=== PATIENT | male | born 1965 | race Caucasian/White ===

== ENCOUNTER 2024-02-17 14:35 | Outpatient (OUT) | payer BC, SELFPAY | END 2024-02-17 14:36 | disposition home or self-care (01) | LOC: PST 14:36 | PROVIDERS: PCP Internal Medicine; Visit Provider Surgery | DX: Z01.818 Encounter for other preprocedural examination (principal); D50.9 Iron deficiency anemia, unspecified ==

== ENCOUNTER 2024-02-26 06:32 | Day surgery (SDC) | payer BC, SELFPAY ==
--- NOTE | 2024-02-26 | OP_ITS ---
OPERATION DATE: 02/26/2024 PREOPERATIVE DIAGNOSIS: Iron deficiency anemia. POSTOPERATIVE DIAGNOSIS: Normal EGD and 4 mm sessile polyp in the ascending colon. PROCEDURE: EGD and colonoscopy to cecum with cold snare polypectomy x1. SURGEON: Mark Marie M.D. ANESTHESIA: Monitored anesthesia care. ESTIMATED BLOOD LOSS: Less than 1 mL. INDICATIONS AND CONSENT: Patient is a 59-year-old male presents for evaluation of iron deficiency anemia. Indications, risks, benefits, alternatives of proceeding with EGD and colonoscopy were explained extensively to the patient, including the risks of bleeding, aspiration, esophageal/gastric/duodenal or colonic perforation or anesthetic complications. All of his questions were answered. Informed consent was obtained. PROCEDURE: Patient brought to the operating room, placed in the left lateral decubitus position. Monitored anesthesia care was provided. Bite block was placed in the patient?s mouth. Scope was inserted into the oropharynx. Under direct visualization, it was advanced into the esophagus, past the cricopharyngeus, down to the stomach. The stomach was insufflated with air. The pylorus was traversed down to the descending portion of the duodenum. There was no evidence of duodenitis or ulceration. There was no scarring within the pyloric channel. Scope was pulled back into the stomach and retroflexed. There was no significant hiatal hernia. The GE junction was noted at approximately 42 cm. There was no distal esophagitis or Cruz?s changes. Remainder of the esophagus was unremarkable. The scope was then withdrawn. Patient was then positioned for colonoscopy. Rectal exam was performed, which showed no masses or blood. The scope was then inserted into the anal canal. Under direct visualization, it was advanced. It was advanced to the cecum where cecal markings were clearly identified. There was noted to be a good prep. Upon withdrawal of the scope, mucosal surfaces were carefully examined. Within the ascending colon, there was noted to be a 4 mm flat, sessile polyp that was removed with cold snare with good hemostasis. There were no other mass lesions or polyps. No inflammatory changes or ulcerations. No significant diverticula. The scope was retroflexed in the anal canal. There was no significant hemorrhoidal disease. The scope was then withdrawn. The patient tolerated procedure well, was sent to recovery room in good condition. Follow up colonoscopy for surveillance likely in five years, but will depend on pathology report. CC: Mikel Darby D.O. GONZALES
--- OUTSIDE RECORDS SUMMARY | 2024-02-26 06:37 | XMS_ITS | CCD ---
Author Organization [facility] Care Team Providers Care Territory Representative Name Role Phone ANDREW MICHELLE JR Primary Care Physician [phone] VIVIANA, DR MORALES Primary Care Unavailable NILL, DR CHANG Attending Unavailable NILL, DR CHANG Consulting Unavailable NILL, DR CHANG Admitting Unavailable MARCELO GIPSON Consulting Unavailable NILL, DR CHANG Attending Unavailable NILL, DR CHANG Admitting Unavailable MURCEKDARION Attending Unavailable PETR VALDERRAMA Referring Unavailable ANDREW MICHELLE JR Primary Care Unavailable ANDREW MICHELLE Referring Unavailable CHRISTY, Charlene Tim Attending Unavailable Allergies Allergy Classification Reported Allergen(s) Allergy Type Date of Onset Reaction(s) Facility (4 sources) Codeine; Translations: [codeine] Drug Allergy Unknown General Surgery [place] (1 source) Codeine Drug Allergy [facility] Repository Medications Current Medications Medication Drug Class(es) Dates Sig (Normalized) Sig (Original) 0.5 ML tirzepatide 30 MG/ML Auto-Injector [Mounjaro] (1 source) Start: 01-31-2024 inject 15 mg by subcutaneous injection every week Mounjaro 15 mg/0.5 mL subcutaneous solution 15 mg, SubCutaneous, qWeek, Refills(s) 0 Start Date: 01/31/24 Status: Ordered atorvastatin 40 mg oral tablet (3 sources) HMG-CoA Reductase Inhibitor Start: 04-12-2022 take 1 tablet by mouth at bedtime Lipitor 40 mg Tab 40 mg = 1 tab(s), Oral, Bedtime, Refills(s) 0 Start Date: 04/12/22 Status: Ordered azilsartan medoxomil 80 mg oral tablet (2 sources) Angiotensin 2 Receptor Aaliyah Start: 04-12-2022 take 1 tablet by mouth once daily Edarbi 80 mg oral tablet 80 mg = 1 tab(s), Oral, Daily, Refills(s) 0 Start Date: 04/12/22 Status: Ordered candesartan cilexetil 32 mg oral tablet (1 source) Angiotensin 2 Receptor Aaliyah Start: 01-31-2024 take 1 tablet by mouth once daily Atacand 32 mg Tab 32 mg = 1 tab(s), Oral, Daily, Refills(s) 0 Start Date: 01/31/24 Status: Ordered celecoxib 200 mg oral capsule (1 source) Nonsteroidal Anti-inflammatory Drug Start: 01-31-2024 take 1 capsule by mouth once daily CeleBREX 200 mg Cap 200 mg = 1 cap(s), Oral, Daily, Refills(s) 0 Start Date: 01/31/24 Status: Ordered colchicine 0.6 mg oral capsule (3 sources) Start: 04-12-2022 take 1 capsule by mouth once daily colchicine 0.6 mg oral capsule 0.6 mg = 1 cap(s), Oral, Daily, Refills(s) 0 Start Date: 04/12/22 Status: Ordered 0.5 ML dulaglutide 9 MG/ML Auto-Injector [Trulicity] (2 sources) GLP-1 Receptor Agonist Start: 04-12-2022 inject 4.5 mg by subcutaneous injection every week Trulicity Pen 4.5 mg/0.5 mL subcutaneous solution 4.5 mg, SubCutaneous, qWeek, Refills(s) 0 Start Date: 04/12/22 Status: Ordered empagliflozin 25 mg oral tablet (3 sources) Sodium-Glucose Cotransporter 2 Inhibitor Start: 01-31-2024 take 1 tablet by mouth once daily in the morning Jardiance 25 mg oral tablet 25 mg = 1 tab(s), Oral, qAM, Refills(s) 0 Start Date: 01/31/24 Status: Ordered Start: 04-12-2022 take 1 tablet by joseph th once daily in the morning Jardiance 10 mg oral tablet 10 mg = 1 tab(s), Oral, qAM, Refills(s) 0 Start Date: 04/12/22 Status: Ordered ezetimibe 10 mg oral tablet (3 sources) Dietary Cholesterol Absorption Inhibitor Start: 04-12-2022 take 5 mg by mouth once daily Zetia 10 mg Tab 5 mg = 0.5 tab(s), Oral, Daily, Refills(s) 0 Start Date: 04/12/22 Status: Ordered Fish Oils (1 source) Start: 02-04-2024 Fish Oil Refill(s) 0 Start Date: 02/04/24 Status: Ordered hydrALAZINE hydrochloride 25 mg oral tablet (3 sources) Arteriolar Vasodilator Start: 04-12-2022 take 1 tablet by mouth twice daily hydrALAZINE 25 mg Tab 25 mg = 1 tab(s), Oral, BID, Refills(s) 0 Start Date: 04/12/22 Status: Ordered levothyroxine sodium 0.075 mg oral tablet (3 sources) l-Thyroxine Start: 04-12-2022 take 1 tablet by mouth once daily Synthroid 75 mcg Tab 75 mcg = 1 tab(s), Oral, Daily, Refills(s) 0 Start Date: 04/12/22 Status: Ordered metFORMIN hydrochloride 1000 mg oral tablet (3 sources) Biguanide Start: 01-31-2024 take 1 tablet by mouth twice daily metformin 1000 mg Tab 1,000 mg = 1 tab(s), Oral, BID, Refills(s) 0 Start Date: 01/31/24 Status: Ordered Start: 04-12-2022 take 1 tablet by joseph th once daily metformin 1000 mg oral tablet 1,000 mg = 1 tab(s), Oral, Daily, Refills(s) 0 Start Date: 04/12/22 Status: Ordered montelukast 10 mg oral tablet (3 sources) Leukotriene Receptor Antagonist Start: 04-12-2022 take 1 tablet by mouth once daily Singulair 10 mg Tab 10 mg = 1 tab(s), Oral, Daily, Refills(s) 0 Start Date: 04/12/22 Status: Ordered pantoprazole 40 mg delayed release oral tablet (3 sources) Proton Pump Inhibitor Start: 04-12-2022 take 1 tablet by mouth once daily Protonix 40 mg Tab-DR 40 mg = 1 tab(s), Oral, Daily, Refills(s) 0 Start Date: 04/12/22 Status: Ordered ProFe 180 mg oral capsule (1 source) Start: 01-31-2024 take 1 capsule by mouth once daily ProFe 180 mg oral capsule 180 mg = 1 cap(s), Oral, Daily, Refills(s) 0 Start Date: 01/31/24 Status: Ordered terbinafine 250 mg oral tablet (1 source) Allylamine Antifungal Start: 01-31-2024 take 1 tablet by mouth once daily LamISIL 250 mg Tab 250 mg = 1 tab(s), Oral, Daily, Refills(s) 0 Start Date: 01/31/24 Status: Ordered 0.5 ml ustekinumab 90 mg/ml prefilled syringe (2 sources) Interleukin-12 Antagonist, Interleukin-23 Antagonist Start: 04-12-2022 inject 45 mg by subcutaneous injection every three months Stelara PFS 45 mg/0.5 mL subcutaneous solution 45 mg, SubCutaneous, q3mo, Refills(s) 0 Start Date: 04/12/22 Status: Ordered Problems Problem Classification Problem Date Documented Date Episodic/Chronic Abdominal pain (2 sources) Epigastric pain; Translations: [Epigastric pain] Onset: 02-04-2024 Episodic Calculus of urinary tract (4 sources) Kidney stone; Translations: [Personal history of urinary calculi] Onset: 06-07-2022 04-12-2022 Episodic Deficiency and other anemia (2 sources) Iron deficiency anemia; Translations: [Iron deficiency anemia, unspecified] Onset: 02-04-2024 Episodic Diabetes mellitus without complication (4 sources) Diabetes mellitus; Translations: [Type 2 diabetes mellitus without complications] Onset: 06-07-2022 04-12-2022 Chronic Disorders of lipid metabolism (4 sources) Hyperlipidemia; Translations: [Hyperlipidemia, unspecified] Onset: 06-07-2022 04-12-2022 Chronic Esophageal disorders (6 sources) Gastroesophageal reflux disease; Translations: [Gastro-esophageal reflux disease without esophagitis] Onset: 06-07-2022 04-12-2022 Chronic Essential hypertension (4 sources) Essential hypertension; Translations: [Essential (primary) hypertension] Onset: 06-09-2019 04-12-2022 Chronic Gout and other crystal arthropathies (3 sources) Gout 04-12-2022 Chronic Other aftercare (1 source) intermodal truck driver (current) use of oral hypoglycemic drugs; Translations: [CURATOR OF PHOTOGRAPHY AND PRINTS USE ORAL HYPOGLYCEMIC DX] Onset: 06-07-2022 Episodic Other aftercare (1 source) Other terminal operations supervisor (current) drug therapy; Translations: [OTH CUSTODIAL CURRENT DRUG THERAPY] Onset: 06-07-2022 Episodic Other inflammatory condition of skin (3 sources) Psoriasis 04-24-2022 Chronic Other inflammatory condition of skin (1 source) Psoriasis vulgaris; Translations: [Psoriasis vulgaris] Onset: 07-08-2023 Chronic Other liver diseases (4 sources) Steatosis of liver 04-12-2022 Chronic Other nutritional; endocrine; and metabolic disorders (3 sources) Body mass index 30+ - obesity 04-24-2022 Chronic Other nutritional; endocrine; and metabolic disorders (1 source) Obesity caused by energy imbalance 02-04-2024 Chronic Other skin disorders (2 sources) Epidermoid cyst; Translations: [Epidermal cyst] Onset: 04-24-2022 Episodic Other skin disorders (3 sources) Epidermoid cyst of skin of neck 04-24-2022 Episodic Other skin disorders (4 sources) Epidermal cyst; Translations: [EPIDERMAL CYST] Onset: 05-30-2022 Episodic Other upper respiratory disease (3 sources) Seasonal allergy 04-12-2022 Chronic Residual codes; unclassified (1 source) Family history of malignant neoplasm of digestive organ; Translations: [Family history of malignant neoplasm of digestive organs] Onset: 02-04-2024 Episodic Residual codes; unclassified (1 source) Family history of colorectal cancer 02-04-2024 Episodic Skin and subcutaneous tissue infections (1 source) Local infection of the skin and subcutaneous tissue, unspecified; Translations: [LOCAL INFECT SKIN SUBQ TISSUE UNS] Onset: 06-07-2022 Episodic Thyroid disorders (4 sources) Hypothyroidism; Translations: [Hypothyroidism, unspecified] Onset: 06-07-2022 04-12-2022 Chronic Results Test Name Value Interpretation Reference Range Facility Ambulatory Visit Summaryon 0 02-04-2024 Ambulatory Visit Summary Ambulatory Visit Summary WILLIAMS GLYNN :1965 Visit Date:02/04/2024 Ambulatory Visit Instructions Your Diagnosis Iron deficiency anemia Chronic GERD Epigastric pain Family history of rectal cancer Your Care Team Attending Physician - Charlene HARRISON MD Primary Care Physician - ANDREW MICHELLE JR, DO Referring Physician - ANDREW MICHELLE JR, DO This Is Your Medications List Contact prescribing physician if questions or concerns atorvastatin (Lipitor 40 mg Tab) candesartan (Atacand 32 mg Tab) celecoxib (CeleBREX 200 mg Cap) colchicine (colchicine 0.6 mg oral capsule) empagliflozin (Jardiance 25 mg oral tablet) ezetimibe (Zetia 10 mg Tab) hydrALAZINE (hydrALAZINE 25 mg Tab) iron polysaccharide (ProFe 180 mg oral capsule) levothyroxine (Synthroid 75 mcg Tab) metformin (metformin 1000 mg Tab) montelukast (Singulair 10 mg Tab) omega-3 polyunsaturated fatty acids (Fish Oil) pantoprazole (Protonix 40 mg Tab-DR) terbinafine (LamISIL 250 mg Tab) tirzepatide (Mounjaro 15 mg/0.5 mL subcutaneous solution) Procedures Performed Colonoscopy (06/05/2019), Colonoscopy (2008), Colonoscopy (2002), Deviated nasal septum, Excision of cyst, Primary repair of tendon, Tonsillectomy. Discharge Vitals Heart Rate (Peripheral) 72 Respiratory Rate 16 Blood Pressure 128/80 Height 185 cm Height 73 in Weight 107 kg Weight 235.4 lb BMI 31.26 Medications What How Much When Instructions Unchanged atorvastatin (Lipitor 40 mg Tab) 1 Tablets By Mouth At bedtime Contact prescribing physician if questions or concerns Unchanged candesartan (Atacand 32 mg Tab) 1 Tablets By Mouth Every day Contact prescribing physician if questions or concerns Unchanged celecoxib (CeleBREX 200 mg Cap) 1 Capsules By Mouth Every day Contact prescribing physician if questions or concerns Unchanged colchicine (colchicine 0.6 mg oral capsule) 1 Capsules By Mouth Every day Contact prescribing physician if questions or concerns Unchanged empagliflozin (Jardiance 25 mg oral tablet) 1 Tablets By Mouth Once a day (in the morning) Contact prescribing physician if questions or concerns Unchanged ezetimibe (Zetia 10 mg Tab) 0.5 Tablets By Mouth Every day Contact prescribing physician if questions or concerns Unchanged hydrALAZINE (hydrALAZINE 25 mg Tab) 1 Tablets By Mouth 2 times a day Contact prescribing physician if questions or concerns Unchanged iron polysaccharide (ProFe 180 mg oral capsule) 1 Capsules By Mouth Every day Contact prescribing physician if questions or concerns Unchanged levothyroxine (Synthroid 75 mcg Tab) 1 Tablets By Mouth Every day Contact prescribing physician if questions or concerns Unchanged metformin (metformin 1000 mg Tab) 1 Tablets By Mouth 2 times a day Contact prescribing physician if questions or concerns Unchanged montelukast (Singulair 10 mg Tab) 1 Tablets By Mouth Every day Contact prescribing physician if questions or concerns Unchanged omega-3 polyunsaturated fatty acids (Fish Oil) Contact prescribing physician if questions or concerns Unchanged pantoprazole (Protonix 40 mg Tab-DR) 1 Tablets By Mouth Every day Contact prescribing physician if questions or concerns Unchanged terbinafine (LamISIL 250 mg Tab) 1 Tablets By Mouth Every day Contact prescribing physician if questions or concerns Unchanged tirzepatide (Mounjaro 15 mg/ 0.5 mL subcutaneous solution) 15 Milligram Subcutaneous Every week Contact prescribing physician if questions or concerns Allergies codeine (Unknown) Problems Ongoing - Any problem that you are currently receiving treatment for. BMI 31.0-31.9,adult Chronic GERD Diabetes Epidermal cyst of neck Epigastric pain Essential hypertension Family history of rectal cancer Fatty liver GERD (gastroesophageal reflux disease) Gout Hyperlipidemia Hypothyroidism Iron deficiency anemia Obesity due to excess calories Psoriasis Renal calculi Seasonal allergies Steatosis of liver Patient Survey You may receive a survey via text or e-mail asking about your office visit. Please share your experience with us by completing your survey. We appreciate your feedback and thank you for choosing us for your care. Normal [facility] CBC AND AUTO DIFFon 07-08-19 ABSOLUTE BASOPHIL 0.1 X10E9/L Normal 0.0-0.2 [facility] Comment on above: Performed By: #### Q TBG #### [facility] ([id number]) [address] [place] [address] 61861 #### CMP, CBCA #### [facility] ([id number]) [address], [address] [place] [address] ABSOLUTE NEUTROPHIL 2.3 X10E9/L Normal 1.5-6.6 [facility] Comment on above: Performed By: #### Q TBG #### [facility] ([id number]) [address] [place] [address] 24971 #### CMP, CBCA #### [facility] ([id number]) [address] [facility] [address], [address] [place] [address] Basophils/100 WBC (Bld) 1.4 % Normal [facility] Comment on above: Performed By: #### Q TBG #### [facility] ([id number]) [address] [place] [address] 38846 #### CMP, CBCA #### [facility] ([id number]) [address], [address] [place] [address] Eosinophils (Bld) [#/Vol] 0.2 10*3/uL Normal 0.0-0.4 [facility] Comment on above: Performed By: #### Q TBG #### [facility] ([id number]) [address] [place] [address] 06107 #### CMP, CBCA #### [facility] ([id number]) [address], [address] [place] [address] Eosinophils/100 WBC (Bld) 5.6 % Normal [facility] Comment on above: Performed By: #### Q TBG #### [facility] ([id number]) [address] [place] [address] 53385 #### CMP, CBCA #### [facility] ([id number]) [address], [address] [place] [address] Erythrocyte distribution width (RBC) [Ratio] 17.6 % High 11.5-15.0 [facility] Comment on above: Performed By: #### Q TBG #### [facility] ([id number]) [address] [place] [address] 48328 #### CMP, CBCA #### [facility] ([id number]) [address], [address] [place] [address] Hematocrit (Bld) [Volume fraction] 32.9 % Low 39-49 [facility] Comment on above: Performed By: #### Q TBG #### [facility] ([id number]) [address] [place] [address] 07292 #### CMP, CBCA #### [facility] ([id number]) [address] [facility] [address], [address] [place] [address] Hemoglobin (Bld) [Mass/Vol] 10.8 g/dL Low 13.0-17.0 [facility] Comment on above: Performed By: #### Q TBG #### [facility] ([id number]) [address] [place] [address] 05653 #### CMP, CBCA #### [facility] ([id number]) [address], [address] [place] [address] Lymphocytes (Bld) [#/Vol] 0.7 10*3/uL Low 1.0-3.5 [facility] Comment on above: Performed By: #### Q TBG #### [facility] ([id number]) [address] [place] [address] 40793 #### CMP, CBCA #### [facility] ([id number]) [address] [facility] [address], [address] [place] [address] Lymphocytes/100 WBC (Bld) 19.0 % Normal [facility] Comment on above: Performed By: #### Q TBG #### [facility] ([id number]) [address] [place] [address] 90024 #### CMP, CBCA #### [facility] ([id number]) [address] [facility] [address], [address] [place] [address] MCH (RBC) [Entitic mass] 25.9 pg Low 27-34 [facility] Comment on above: Performed By: #### Q TBG #### [facility] ([id number]) [address] [place] [address] 16826 #### CMP, CBCA #### [facility] ([id number]) [address] [facility] [address], [address] [place] [address] MCHC (RBC) [Mass/Vol] 32.7 g/dL Normal 32-36 [facility] Comment on above: Performed By: #### Q TBG #### [facility] ([id number]) [address] [place] [address] 06957 #### CMP, CBCA #### [facility] ([id number]) [address], [address] [place] [address] MCV (RBC) [Entitic vol] 79 fL Low 80-100 [facility] Comment on above: Performed By: #### Q TBG #### [facility] ([id number]) [address] [place] [address] 79347 #### CMP, CBCA #### [facility] ([id number]) [address], [address] [place] [address] Monocytes (Bld) [#/Vol] 0.6 10*3/uL Normal 0-0.9 [facility] Comment on above: Performed By: #### Q TBG #### [facility] ([id number]) [address] [place] [address] 76395 #### CMP, CBCA #### [facility] ([id number]) [address], [address] [place] [address] Monocytes/100 WBC (Bld) 14.8 % Normal [facility] Comment on above: Performed By: #### Q TBG #### [facility] ([id number]) [address] [place] [address] 09597 #### CMP, CBCA #### [facility] ([id number]) [address], [address] [place] [address] Neutrophils/100 WBC (Bld) 59.2 % Normal [facility] Comment on above: Performed By: #### Q TBG #### [facility] ([id number]) [address] [place] [address] 90668 #### CMP, CBCA #### [facility] ([id number]) [address], [address] [place] [address] Platelet mean volume (Bld) [Entitic vol] 7.1 fL Normal 7-12 [facility] Comment on above: Performed By: #### Q TBG #### [facility] ([id number]) [address] [place] [address] 37480 #### CMP, CBCA #### [facility] ([id number]) [address], [address] [place] [address] Platelets (Bld) [#/Vol] 244 10*3/uL Normal 150-450 [facility] Comment on above: Performed By: #### Q TBG #### [facility] ([id number]) [address] [place] [address] 66008 #### CMP, CBCA #### [facility] ([id number]) [address], [address] [place] [address] RBC COUNT 4.17 X10E12/L Normal 4.10-5.70 [facility] Comment on above: Performed By: #### Q TBG #### [facility] ([id number]) [address] [place] [address] 87972 #### CMP, CBCA #### [facility] ([id number]) [address], [address] [place] [address] WBC (Bld) [#/Vol] 3.9 10*3/uL Low 4.0-11.0 [facility] Comment on above: Performed By: #### Q TBG #### [facility] ([id number]) [address] [place] [address] 48030 #### CMP, CBCA #### [facility] ([id number]) [address], [address] [place] [address] COMPREHENSIVE METABOLIC PANE Jacques 07-08-2023 Albumin [Mass/Vol] 4.5 g/dL Normal 3.2-5.3 [facility] Comment on above: Performed By: #### Q TBG #### [facility] ([id number]) [address] [place] [address] 14047 #### CMP, CBCA #### [facility] ([id number]) [address], [address] [place] [address] ALP [Catalytic activity/Vol] 31 U/L Low 39-130 [facility] Comment on above: Performed By: #### Q TBG #### [facility] ([id number]) [address] [place] [address] 38200 #### CMP, CBCA #### [facility] ([id number]) [address], [address] [place] [address] ALT [Catalytic activity/Vol] 72 U/L High 0-40 [facility] Comment on above: Performed By: #### Q TBG #### [facility] ([id number]) [address] [place] [address] 06474 #### CMP, CBCA #### [facility] ([id number]) [address], [address] [place] [address] Anion gap [Moles/Vol] 11 mmol/L Normal 5-15 [facility] Comment on above: Performed By: #### Q TBG #### [facility] ([id number]) [address] [place] [address] 05054 #### CMP, CBCA #### [facility] ([id number]) [address], [address] [place] [address] AST [Catalytic activity/Vol] 43 U/L High 0-41 [facility] Comment on above: Performed By: #### Q TBG #### [facility] ([id number]) [address] [place] [address] 69708 #### CMP, CBCA #### [facility] ([id number]) [address], [address] [place] [address] Bilirubin [Mass/Vol] 0.4 mg/dL Normal 0.3-1.2 [facility] Comment on above: Performed By: #### Q TBG #### [facility] ([id number]) [address] [place] [address] 82293 #### CMP, CBCA #### [facility] ([id number]) [address] [facility] [address] [place] [address] Calcium [Mass/Vol] 8.7 mg/dL Normal 8.5-10.5 [facility] Comment on above: Performed By: #### Q TBG #### [facility] ([id number]) [address] [place] [address] 18359 #### CMP, CBCA #### [facility] ([id number]) [address] [facility] [place] [address] Chloride [Moles/Vol] 100 mmol/L Normal 98-109 [facility] Comment on above: Performed By: #### Q TBG #### [facility] ([id number]) [address] [place] [address] 57926 #### CMP, CBCA #### [facility] ([id number]) [address], [address] [place] [address] CO2 [Moles/Vol] 26 mmol/L Normal 22-32 [facility] Comment on above: Performed By: #### Q TBG #### [facility] ([id number]) [address] [place] [address] 01444 #### CMP, CBCA #### [facility] ([id number]) [address], [address] [place] [address] Creatinine [Mass/Vol] 1.25 mg/dL Normal 0.60-1.30 [facility] Comment on above: Result Comment: METH OD TRACEABLE TO IDMS STANDARD Performed By: #### Q TBG #### [facility] ([id number]) [address] [place] [address] 99299 #### LEANN, CBCA #### [facility] ([id number]) [address], [address] [place] [address] GFR/1.73 sq M.predicted among non-blacks MDRD (S/P/Bld) [Vol rate/Area] 68 mL/min/{1.73_m2} Normal >59 [facility] Comment on above: Result Comment: Reported eGFR is based on the CKD-EPI 2020 equation that does not use a race coefficient. Performed By: #### Q TBG #### [facility] ([id number]) [address] [place] [address] 41598 #### LEANN, CBCA #### [facility] ([id number]) [address] [facility], [address] [place] [address] Glucose [Mass/Vol] 120 mg/dL High 65-99 [facility] Comment on above: Performed By: #### Q TBG #### [facility] ([id number]) [address] [place] [address] 48666 #### CMP, CBCA #### [facility] ([id number]) [address], [address] [place] [address] Potassium [Moles/Vol] 4.8 mmol/L Normal 3.5-5.0 [facility] Comment on above: Performed By: #### Q TBG #### [facility] ([id number]) [address] [place] [address] #### CMP, CBCA #### [facility] ([id number]) [address], [address] [place] [address] Protein [Mass/Vol] 7.5 g/dL Normal 6.0-8.0 [facility] Comment on above: Performed By: #### Q TBG #### [facility] ([id number]) [address] [place] [address] #### CMP, CBCA #### [facility] ([id number]) [address], [address] [place] [address] Sodium [Moles/Vol] 137 mmol/L Normal 134-146 [facility] Comment on above: Performed By: #### Q TBG #### [facility] ([id number]) [address] [place] [address] #### CMP, CBCA #### [facility] ([id number]) [address], [address] [place] [address] Urea nitrogen [Mass/Vol] 21 mg/dL Normal 5-23 [facility] Comment on above: Performed By: #### Q TBG #### [facility] ([id number]) [address] [place] [address] #### CMP, CBCA #### [facility] ([id number]) [address], [address] [place] [address] QUANTIFERON TB GOLDon 2023 MITOGEN MINUS NIL >9.91 Normal >=0.50 [facility] Comment on above: Performed By: #### Q TBG #### [facility] ([id number]) [address] [place] [address] #### CMP, CBCA #### [facility] ([id number]) [address], [address] [place] [address] NIL RESULT 0.09 IU/mL Normal <=8.00 [facility] Comment on above: Performed By: #### Q TBG #### [facility] ([id number]) [address] [place] [address] #### CMP, CBCA #### [facility] ([id number]) [address], [address] [place] [address] TB INTERPRETATION See below Normal [facility] Comment on above: Result Comment: NOTE Infection with M. tuberculosis complex is unlikely. If latent tuberculosis infection is highly suspected, a negative result does not rule out the infection. Specimens from immunocompromised patients and those <5 years of age may show false negative results. In case of a contact investigation, please repeat 8-12 weeks after a known exposure. Test Performed By: [place] [address] Home Care Attendant: Allen Dewey III #[id number] Performed By: #### Q TBG #### [facility] ([id number]) [address] [place] [address] #### CMP, CBCA #### [facility] ([id number]) [address], [address] [place] [address] TB RESULT Negative Normal [facility] Comment on above: Performed By: #### Q TBG #### [facility] ([id number]) [address] [place] [address] #### CMP, CBCA #### [facility] ([id number]) [address], [address] [place] [address] TB1 AG MINUS NIL 0.00 IU/mL Normal <0.35 [facility] Comment on above: Performed By: #### Q TBG #### [facility] ([id number]) [address] [place] [address] #### CMP, CBCA #### [facility] ([id number]) [address] [place] [address] TB2 AG MINUS NIL 0.00 IU/mL Normal <0.35 [facility] Comment on above: Performed By: #### Q TBG #### [facility] ([id number]) [address] [place] [address], [place] [address] #### CMP, CBCA #### [facility] ([id number]) [address] [place] [address] Vital Signs Date Time Vital Sign Value Performing Clinician Marta guzmán 02-04-2024 13:51-0400 Blood Pressure Location Charlene NILL [facility] 02-04-2024 13:51-0400 Diastolic blood pressure 80 mm[Hg] Charlene NILL [facility] 02-04-2024 13:51-0400 Heart rate 72 /min Charlene NILL [facility] 02-04-2024 13:51-0400 Respiratory rate 16 /min Charlene NILL [facility] 02-04-2024 13:51-0400 Systolic blood pressure 128 mm[Hg] Charlene NILL [facility] 04-24-2022 15:37-0400 Blood Pressure Location Charlene NILL [facility] 04-24-2022 15:37-0400 Diastolic blood pressure 94 mm[Hg] Charlene NILL [facility] 04-24-2022 15:37-0400 Heart rate 76 /min Charlene NILL [facility] 04-24-2022 15:37-0400 Respiratory rate 16 /min Charlene NILL [facility] 04-24-2022 15:37-0400 Systolic blood pressure 142 mm[Hg] Charlene HARRISON [facility] Encounters Encounter Date Encounter Type Care Provider Facility Start: 02-04-2024 End: 02-04-2024 ambulatory ANDREW MICHELLE Facility:[facility] Start: 02-04-2024 End: 02-04-2024 Patient encounter procedure [facility] Start: 07-08-2023 End: 07-08-2023 ambulatory DARION Jessica ZHANG Not Available Start: 07-08-2023 End: 07-09-2023 ambulatory PETR Merritt [facility] Start: 06-13-2022 End: 06-13-2022 Patient encounter procedure Charlene HARRISON [facility] Start: 05-30-2022 End: 05-30-[address] ANDREW MICHELLE Facility:[facility] Start: 05-26-[address] CHARLENE HARRISON Facilit y:[facility] Start: 04-24-2022 End: 04-24-2022 Patient encounter procedure Charlene HARRISON [facility] Procedures Date Procedure Procedure Detail Performing Clinician Start: 06-05-2019 Colonoscopy Charlene NI LL Start: 06-24-2008 Colonoscopy Charlene NI LL Start: 06-24-2002 Colonoscopy Charlene NI LL Colonoscopy Charlene NILL Deviated nasal septu m (disorder) Charlene SHEARERL Excision of cyst Charlene NIL L Comment on above: right neck Primary repair of tendon Noman hael NILL Comment on above: left thrid digit Tonsillectomy Charlene HARRISON Immunizations Immunization Date Immunization Notes Care Provider Serge ma 10-14-2020 SARS-CoV-2 (COVID-19 ) mRNA-1273 vaccine Charlene HARRISON [facility] Comment on above: Result Comment: 2023: 52 09-16-2020 SARS-CoV-2 (COVID-19 ) mRNA-1273 vaccine Charlene HARRISON [facility] Comment on above: Result Comment: 2023: 52 Payers Date Payer Category Payer Unknown [id number] 1965 Unknown [id number] 2.16.84 [id number] 1965 Unknown [id number] 2.16.84 [id number] 1967 Unknown [id number] 2.16.84 [id number] 1967 Unknown [id number] 2.16.84 [id number] 1967 Unknown [id number] 2.16.8 [id number] 1957 Private Health Insurance [id number] 1957 Unknown [id number] Social History Date Type Detail Facility Start: 04-24-2022 End: 02-04-2024 Tobacco smoking status Never smoked tobacco (finding) [facility] Tobacco smoking status Never [facility] Sex Assigned At Male [facility] Functional Status Date Assessment Result Facility 02-04-2024 Functional Status N/A [facility] 04-24-2022 Functional Status N/A [facility]-04-2024 Note Date & Type Note Facility 02-04-2024 Note General Surgery Offi ce/Clinic Note Chief Complaint consultation for anemia HPI Staff 59 year old male presents on consultation from Dr. Michelle for epigastric pain and anemia. Labs completed 01/20/24 with H/H 10.4 and 32.6. Reports intermittent pain in epigastric area that worsens with positioning and after prolonged standing. Reports pain improves with repositioning and rest. Taking Protonix 40mg daily for many years. Denies rectal pain or bleeding. Denies nausea or vomiting. Denies bowel changes. Denies unexplained weight loss. Last colonoscopy completed 05/2019- normal. Mother with history of rectal cancer., diagnosed age 70's. History of Present Illness 59 yo male with h/o htn, DMII, hyperlipidemia, hypothyroidism, chronic GERD, psoriasis, referred for iron deficiency anemia; denies change in bms or blood in stools; some intermittent epigastric pain, ache, unrelated to eating, no dysphagia or early satiety, no wt loss; no N/V; no abd operations; last colonoscopy 2018, wnl; on Celebrex daily, no asa; fmhx of rectal cancer in patient's mother, dx in her 70's, no fmhx of IBD; no tobacco use. Review of Systems PHQ Score Initial Depression Screen Score: 0 SCORE ROS - Provider Constitutional: no fever, no sweats, no weight loss. Eyes: no glasses, no blurred vision, no visual loss. ENMT: no dentures, no hoarseness, no swallowing difficulties, no hearing loss, no ear infection(s), no nose bleeds. Cardiovascular: normal blood pressure, no chest pain, regular heartbeat, no heart murmur. Respiratory: no shortness of breath, no cough, no asthma, no wheezing. Gastrointestinal: no nausea, no vomiting, no diarrhea, no constipation, no blood in stool, no change in bowel habits, no abdominal pain, no hepatitis. Genitourinary: no kidney stones, no urine infection, no dysuria. Musculoskeletal: no pain, no weakness. Skin: no changing moles, no rash, no skin lumps. Neurologic: no seizures, no epilepsy, no headache. Psychiatric: no emotional or psychiatric problem. Heme/Lymph: no bleeding problems, no anemia, no blood clots, no transfusions. Allergy/Immunologic: no swollen lymph nodes/glands, no IV drug abuse. Other: Additional ROS info: Except as noted in the above Review of Systems and in the History of Present Illness, all other systems have been reviewed and are negative or noncontributory. Physical Exam Vitals & Measurements HR: 72(Peripheral) RR: 16 BP: 128/80 HT: 73 in HT: 185 cm WT: 107 kg WT: 235.4 lb BMI: 31.26 HEENT: normal conjunctiva, sclera clear, no scleral icterus, EOM intact, PERRLA, oral mucosa moist without lesions. Neck: trachea midline, no mass, symmetric, no thyromegaly or nodules, no adenopathy Respiratory: lungs CTA, respirations non labored. Cardiovascular: regular rate and rhythm, no murmur, no pedal edema or varicosities. Gastrointestinal: soft, non distended, mild tenderness, epigastrium, to deep palpation; no palpable hernias, diastasis recti no, no hepatosplenomegaly; normal bs Lymphatic: no cervical adenopathy, no supraclavicular adenopathy. Musculoskeletal: normal gait, digits and nails without infection, nodes, cyanosis, clubbing. Skin: no rashes, no lesions, no ulcers, no subcutaneous nodules, induration. Psychiatric/Neuro: oriented to time, place, person, judgement normal, affect appropriate for age, insight intact, no focal deficits. Tests: labs reviewed, review of old records completed , Discussed surgical options, risks, and possible complications with patient. Assessment/Plan 1. Iron deficiency anemia (D50.9: Iron deficiency anemia, unspecified) plan EGD and colonoscopy under anesthesia for further evaluation, informed consent obtained. 2. Chronic GERD (K21.9: Gastro-esophageal reflux disease without esophagitis) see # 1 3. Epigastric pain (R10.13: Epigastric pain) see # 1 4. Family history of rectal cancer (Z80.0: Family history of malignant neoplasm of digestive organs) see # 1 Follow-up No qualifying data available Problem List/Past Medical History Ongoing BMI 31.0-31.9,adult Chronic GERD Diabetes Epidermal cyst of neck Epigastric pain Essential hypertension Family history of rectal cancer Fatty liver GERD (gastroesophageal reflux disease) Gout Hyperlipidemia Hypothyroidism Iron deficiency anemia Obesity due to excess calories Psoriasis Renal calculi Seasonal allergies Steatosis of liver Historical No qualifying data Procedure/Surgical History Colonoscopy (06/05/2019), Colonoscopy (2008), Colonoscopy (2002), Deviated nasal septum, Excision of cyst, Primary repair of tendon, Tonsillectomy. Medications Atacand 32 mg Tab, 32 mg= 1 tab(s), Oral, Daily CeleBREX 200 mg Cap, 200 mg= 1 cap(s), Oral, Daily colchicine 0.6 mg oral capsule, 0.6 mg= 1 cap(s), Oral, Daily Fish Oil hydrALAZINE 25 mg Tab, 25 mg= 1 tab(s), Oral, BID Jardiance 25 mg oral tablet, 25 mg= 1 tab(s), Oral, qAM LamISIL 250 mg Tab, 250 mg= 1 tab(s), Oral, Daily (more content not included)... [facility] Comment on above: Result Comment: Elec tronically Signed By: CHRISTY NAVARRO, Charlene Rizo.viral\Date and Time Signed: 02/04/24 14:24 EDT Clinical Note 05-30-2022 Note Date & Type Note Facility 05-30-2022 Note OPERATIVE NOTE OPERATION DATE: 05/30/2022 PREOPERATIVE DIAGNOSIS: Epidermal cyst right neck. POSTOPERATIVE DIAGNOSIS: Epidermal cyst right neck with scarred, previously ruptured epidermal cyst. PROCEDURE: Excisional biopsy epidermal cyst right neck. ANESTHESIA: Local with 0.5% Marcaine plain. ESTIMATED BLOOD LOSS: Less than 5 mL. INDICATIONS AND CONSENT: Patient is a 57-year-old male with long history of an epidermal cyst to the right neck that seen to enlarge and become inflamed. It responded to antibiotic therapy. It has now shrunk down smaller than its normal size. Indications, risks, benefits, alternatives of proceeding with excisional biopsy under local anesthesia were explained extensively to the patient, including risks of bleeding, infection, scarring, pain, recurrence and need for further surgery. All of his questions were answered. Informed consent was obtained. PROCEDURE: Patient brought to the operating room, placed in the supine position. General anesthesia was induced. He was prepped and draped in the usual sterile fashion. Area was anesthetized with 0.5% Marcaine plain. Elliptical incision was made in the line of the skin crease, encompassing the central core of the cyst. Total length was approximately 2 cm. This was carried down through subcutaneous tissue using sharp dissection. There was noted to be scarring and evidence of a scarred, previously ruptured epidermal cyst. There was no abscess. There was good hemostasis. The subcutaneous tissue was re-approximated with interrupted 4-0 Monocryl suture. Skin was closed with a running 5-0 subcuticular Monocryl suture and skin glue. Sterile pressure dressing was applied. Sponge and needle counts were correct x2 per nursing personnel. Patient tolerated procedure well, was discharged to home in good condition. CC: Dr. Friedman [facility] Evaluation + Plan note Note Date & Type Note Facility Evaluation + Plan note No data available for this section [facility] Discharge instructions Note Date & Type Note Facility Hospital Discharge instructions No data available for this section [facility] Progress note Note Date & Type Note Facility Progress note No data available for this section [facility] Summary Purpose Family History No Family History Records FoundNo Family History Records FoundNo Family History Records Found No data available for this section No Family History Records Found Advance Directives No Advanced Directives Records FoundNo Advanced Directives Records FoundNo Advanced Directives Records FoundNo Advanced Directives Records Found Additional Source Comments Patient Care team informatio n (unrecognized section and content) Personnel Name: ANDREW MICHELLE JR, DO Address: Address: [address] [place] [address] Personnel Name: VIVIANA JR AKHTAR ANDREW Address: Address: [address] [place] [address] Personnel Name: ANDREW MICHELLE JR, DO Address: Address: [address] [place] [address] (unrecognized sect ion and content) No Status Records FoundNo Status Records FoundNo Status Records FoundNo Status Records Found INFORMATION SOURCE (unrecogn ized section and content) DATE CREATED AUTHOR 06/14/2022 [facility] DATE CREATED AUTHOR AUTHOR'S ORGANIZ ATION 07/09/2023 [facility] DATE CREATED AUTHOR AUTHOR'S ORGANIZ ATION 07/13/2023 [facility] DATE CREATED AUTHOR AUTHOR'S ORGANIZ ATION 02/05/2024 [facility] FOR RECORDS PERTAINING TO PATIENTS WHO ARE OR HAVE BEEN ENROLLED IN A CHEMICAL DEPENDENCY/SUBSTANCEABUSE PROGRAM, SOME INFORMATION MAY BE OMITTED. This clinical summary was aggregated from multiple sources. Caution should be exercised in using it in the provision of clinical care. This summary normalizes information from multiple sources, and as a consequence, information in this document may materially change the coding, format and clinical context of patient data. In addition, data may be omitted in some cases. CLINICAL DECISIONS SHOULD BE BASED ON THE PRIMARY CLINICAL RECORDS. [employer] [facility]. provides no warranty or guarantee of the accuracy or completeness of information in this document.
[2024-02-26 06:53] VITALS: BP 164/85; PULSE 76; TEMP 35.8; O2SAT 98; BMI 31.5
[2024-02-26 07:07] LABS: Glucometer 114 mg/dL (74-106)
[2024-02-26] MEDS: LACTATED RINGER'S SOLUTION 1,000 ML 50 ML IV (07:56)
[2024-02-26 08:32] VITALS: BP 140/98; PULSE 77; TEMP 36.2; O2SAT 98
[2024-02-26 08:47] VITALS: BP 152/87; PULSE 73; O2SAT 99
[2024-02-26 09:03] VITALS: BP 148/86; PULSE 71; TEMP 36.2; O2SAT 98
== END 2024-02-26 09:06 | disposition home or self-care (01) ==
PROVIDERS: PCP Internal Medicine; Visit Provider Surgery
PROC: (CPT 813; principal; 2024-02-26 07:55)
DX: D50.9 Iron deficiency anemia, unspecified (principal); D12.2 Benign neoplasm of ascending colon; R10.13 Epigastric pain; I10 Essential (primary) hypertension; E11.9 Type 2 diabetes mellitus without complications; E78.5 Hyperlipidemia, unspecified; E03.9 Hypothyroidism, unspecified; K21.9 Gastro-esophageal reflux disease without esophagitis; Z80.0 Family history of malignant neoplasm of digestive organs; Z79.84 Long term (current) use of oral hypoglycemic drugs; Z79.85 Long-term (current) use of injectable non-insulin antidiabetic drugs
CPT/HCPCS: 43235; 45385; 36415; 82948; 88305; J2704